=== PATIENT | male | born 1975 | race Caucasian/White ===

== ENCOUNTER 2020-07-31 08:44 | Outpatient (REF) | payer OTHER, SELFPAY ==
[2020-07-31 21:45] LABS: Hemoglobin A1C 5.5 % (<5.7)
[2020-07-31 22:16] LABS: ALT 93 U/L (16-63); AST 48 U/L (15-37); Albumin 4.3 g/dL (3.4-5.0); Alkaline Phosphatase 80 U/L (46-116); Anion Gap 9.4 mmol/L (3-11); BUN 22 mg/dL (7-18); Bilirubin, Total 0.6 mg/dL (0.2-1.0); CO2 25.6 mmol/L (21.0-32.0); CREATININE 1.05 mg/dL (0.70-1.30); Calculated LDL 70 mg/dL (<100); Chloride 107 mmol/L (98-107); Cholesterol 164 mg/dL (<200); Glucose 106 mg/dL (74-106); HDL Cholesterol 31 mg/dL (40-60); Magnesium 2.2 mg/dL (1.8-2.4); Potassium 4.2 mmol/L (3.5-5.1); Sodium 142 mmol/L (136-145); Total Protein 7.2 g/dL (6.4-8.2); Triglyceride 319 mg/dL (<150); Vitamin B12 464 pg/mL (193-986)
== END 2020-07-31 09:04 ==
LOC: NCHCN 08:44
PROVIDERS: Visit Provider Nurse Practitioner Family
DX: I10 Essential (primary) hypertension (principal); E78.5 Hyperlipidemia, unspecified; K21.9 Gastro-esophageal reflux disease without esophagitis
CPT/HCPCS: 80053; 80061; 82607; 83036; 83735

== ENCOUNTER 2020-09-20 08:18 | Outpatient (REF) | payer OTHER, SELFPAY ==
[2020-09-20 22:07] LABS: ALT 82 U/L (16-63); AST 46 U/L (15-37); Albumin 4.3 g/dL (3.4-5.0); Alkaline Phosphatase 79 U/L (46-116); Anion Gap 8.2 mmol/L (3-11); BUN 20 mg/dL (7-18); Bilirubin, Total 0.6 mg/dL (0.2-1.0); CO2 27.8 mmol/L (21.0-32.0); CREATININE 1.12 mg/dL (0.70-1.30); Calcium 8.9 mg/dL (8.5-10.1); Chloride 104 mmol/L (98-107); Glucose 105 mg/dL (74-106); Potassium 3.9 mmol/L (3.5-5.1); Sodium 140 mmol/L (136-145); Total Protein 7.3 g/dL (6.4-8.2)
== END 2020-09-20 08:38 ==
LOC: NCHCN 08:18
PROVIDERS: Visit Provider Nurse Practitioner Family
DX: R74.8 Abnormal levels of other serum enzymes (principal)
CPT/HCPCS: 80053

== ENCOUNTER 2021-01-29 19:03 | Outpatient (REF) | payer OTHER, SELFPAY ==
[2021-01-29 16:01] LABS: ALT 108 U/L (16-63); AST 47 U/L (15-37); Albumin 4.1 g/dL (3.4-5.0); Alkaline Phosphatase 88 U/L (46-116); Anion Gap 7.4 mmol/L (3-11); BUN 19 mg/dL (7-18); Bilirubin, Total 0.7 mg/dL (0.2-1.0); CO2 25.6 mmol/L (21.0-32.0); CREATININE 1.1 mg/dL (0.70-1.30); Calcium 8.8 mg/dL (8.5-10.1); Chloride 106 mmol/L (98-107); Glucose 99 mg/dL (74-106); Potassium 3.9 mmol/L (3.5-5.1); Sodium 139 mmol/L (136-145); Total Protein 7.2 g/dL (6.4-8.2)
== END 2021-01-29 19:04 | disposition home or self-care (01) ==
LOC: NCHCN 19:03
PROVIDERS: Visit Provider Nurse Practitioner Family
DX: R74.8 Abnormal levels of other serum enzymes (principal)
CPT/HCPCS: 80053

== ENCOUNTER 2021-08-10 09:52 | Outpatient (REF) | payer OTHER, SELFPAY ==
[2021-08-10 15:00] LABS: ALT 61 U/L (16-63); AST 35 U/L (15-37); Albumin 4.4 g/dL (3.4-5.0); Alkaline Phosphatase 91 U/L (46-116); Anion Gap 8.7 mmol/L (3-11); BUN 15 mg/dL (7-18); Bilirubin, Total 0.5 mg/dL (0.2-1.0); CO2 26.3 mmol/L (21.0-32.0); CREATININE 1.1 mg/dL (0.70-1.30); Calculated LDL 68 mg/dL (<100); Chloride 104 mmol/L (98-107); Cholesterol 130 mg/dL (<200); Glucose 113 mg/dL (74-106); HDL Cholesterol 35 mg/dL (40-60); Potassium 4.6 mmol/L (3.5-5.1); Sodium 139 mmol/L (136-145); Total Protein 7.2 g/dL (6.4-8.2); Triglyceride 136 mg/dL (<150)
== END 2021-08-10 09:53 | disposition home or self-care (01) ==
LOC: NCHCN 09:52
PROVIDERS: Referring Provider Family Medicine; Visit Provider Family Medicine
DX: I25.10 Atherosclerotic heart disease of native coronary artery without angina pectoris (principal); E78.5 Hyperlipidemia, unspecified; Z00.00 Encounter for general adult medical examination without abnormal findings
CPT/HCPCS: 80053; 80061

== ENCOUNTER 2022-08-09 16:40 | Outpatient (REF) | payer OTHER, SELFPAY ==
[2022-08-09 15:31] LABS: ALT 79 U/L (16-63); AST 33 U/L (15-37); Albumin 4.1 g/dL (3.4-5.0); Alkaline Phosphatase 76 U/L (46-116); Anion Gap 9.4 mmol/L (3-11); BUN 23 mg/dL (7-18); Bilirubin, Total 0.4 mg/dL (0.2-1.0); CO2 24.6 mmol/L (21.0-32.0); CREATININE 1.1 mg/dL (0.70-1.30); Calcium 8.8 mg/dL (8.5-10.1); Calculated LDL 67 mg/dL (<100); Chloride 105 mmol/L (98-107); Cholesterol 148 mg/dL (<200); Estimated GFR 83.32 (mL/min/1.73m2); Glucose 114 mg/dL (74-106); HDL Cholesterol 38 mg/dL (40-60); Potassium 4.4 mmol/L (3.5-5.1); Sodium 139 mmol/L (136-145); Total Protein 7.7 g/dL (6.4-8.2); Triglyceride 217 mg/dL (<150)
== END 2022-08-09 16:41 | disposition home or self-care (01) ==
LOC: NCHCN 16:40
PROVIDERS: Visit Provider Family Medicine
DX: I10 Essential (primary) hypertension (principal); E78.5 Hyperlipidemia, unspecified
CPT/HCPCS: 80053; 80061

== ENCOUNTER 2023-12-16 14:29 | Outpatient (REF) | payer OTHER, SELFPAY ==
--- OUTSIDE RECORDS SUMMARY | 2023-12-16 14:31 | XMS_ITS | CCD ---
Author Name Unknown Address [address] [place] [address] [phone] Organization Unknown Address [address] [place], [place] [id number] Care Team Providers Care Client Customer Manager Name Role Phone JOHNSON LIEBERMAN Attending Physician [phone] Vital Signs Unknown or Not Available. Allergies Allergy Code Allergy Type Reaction Status PENICILLINS (CLASS) 55324 Drug allergy Act hossein Procedures Unknown or Not Available. History of Immunizations Unknown or Not Available. Problems Unknown or Not Available. Results COMPREHENSIVE METABOLIC PANE L (CMP) - Collect Date/Time: 11/27/2023 15:15 Test Name Code Test Result Test Units Test Ref Rang e GLUCOSE 2345-7 104 mg/dL L=70 H=116 BUN 3094-0 14 mg/dL L=6 H=25 CREATININE 2160-0 1.30 mg/dL L=0.67 H=1.17 SODIUM SERUM 2951-2 137 mmol/L L=136 H=145 POTASSIUM SERUM 2823-3 3.9 mmol/L L=3.4 H=5 .2 CHLORIDE SERUM 2075-0 102 mmol/L L=96 H=110 CARBON DIOXIDE (CO2) 2028-9 27 mmol/L L=22 H=34 ANION GAP 61543-2 8.3 mmol/L CALCIUM SERUM 93953-4 8.6 mg/dL L=8.2 H=10. 2 BILIRUBIN TOTAL 1975-2 0.5 mg/dL L=0.0 H=1 .3 ALK. PHOS. 6768-6 72 U/L L=46 H=116 SGOT (AST) 1920-8 28 U/L L=15 H=37 SGPT (ALT) 1742-6 62 U/L L=12 H=78 TOTAL PROTEIN 2885-2 7.1 gm/dL L=6.0 H=8.0 ALBUMIN 1751-7 3.8 gm/dL L=3.4 H=5.0 AGE 48 years eGFR (non-Afr.Amer.) 43308-8 59 mL/min eGFR (Afr-Fijian) 20804-8 71 mL/min HEMOGLOBIN A1C* - Collect Da te/Time: 11/27/2023 15:15 Test Name Code Test Result Test Units Test Ref Rang e Hgb A1c 4548-4 5.6 % L=3.8 H=5.7 MEAN BLOOD GLUCOSE 47445-6 100 mg/dL LIPID PANEL* - Collect Date/ Time: 11/27/2023 15:15 Test Name Code Test Result Test Units Test Ref Rang e CHOLESTEROL 2093-3 140 mg/dL L=0 H=200 TRIGLYCERIDES 2571-8 325 mg/dL L=63 H=313 HDL 2085-9 38 mg/dL L=28 H=63 non-HDL-C 16526-4 102 mg/dL L=0 H=160 LDL (CALC) 94505-0 37 mg/dL L=0 H=130 % HDL 27.1 % Chol/HDL Ratio 9830-1 3.7 L=0.0 H=4. 9 CHD Relative Risk 0.7 x Avg L=0.0 H =1.0 LDL/HDL Ratio 69683-5 1.0 L=0.0 H=3.5 CHD Relative Risk. 0.3 x Avg L=0.0 H=1.0 FASTING STATUS: NON FASTING N/A Active Medications Unknown or Not Available. Medications Administered During Visit Unknown or Not Available. 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 Discharge Instructions You were admitted to [facility] on 11/27/2023 00:00 with a principal diagnosis of Atherosclerotic heart disease of [place] coronary artery without angina pectoris You had the following tests done:COMPREHENSIVE METABOLIC PANEL (CMP)HEMOGLOBIN A1C*LIPID PANEL* You were discharged from [facility] on 11/27/2023 14:16 Should you have any questions prior to discharge, please contact a member of your healthcare team. If you have left the hospital and have any questions, please contact your primary care physician. Chief Complaint and Reason For Visit Unknown or Not Available. Function Status Unknown or Not Available. Plan of Care Unknown or Not Available. Referral/Transition of Care Unknown or Not Available.
--- OUTSIDE RECORDS SUMMARY | 2023-12-16 14:31 | XMS_ITS | CCD ---
Author Name Unknown Address [address] [place] [address] [phone] Organization Unknown Address [address] [place] [address] [id number] Care Team Providers Care Ship Superintendent Name Role Phone JOHNSON LIEBERMAN Attending Physician [phone] JOHNSON LIEBERMAN Rounding (Secondary) Physician [phone] Vital Signs Unknown or Not Available. Allergies Allergy Code Allergy Type Reaction Status PENICILLINS (CLASS) 22117 Drug allergy Act hossein Procedures Unknown or Not Available. History of Immunizations Unknown or Not Available. Problems Unknown or Not Available. Results Unknown or Not Available. Active Medications Unknown or Not Available. Medications Administered During Visit Unknown or Not Available. 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 Discharge Instructions You were admitted to [facility] on 11/15/2022 00:00 with a principal diagnosis of Atherosclerotic heart disease of [place] coronary artery without angina pectoris You were discharged from [facility] on 11/15/2022 00:00 Should you have any questions prior to [...]
--- OUTSIDE RECORDS SUMMARY | 2023-12-16 14:31 | XMS_ITS | CCD ---
Author Name Unknown Address [address] [place] [address] [phone] Organization Unknown Address [address] [place] [address] [phone] Care Team Providers Care Driver Utility Worker Name Role Phone JOHNSON LIEBERMAN Attending Physician [phone] Vital Signs Unknown or Not Available. Allergies Allergy Code Allergy Type Reaction Status PENICILLINS (CLASS) 51632 Drug allergy Act hossein Procedures Unknown or Not Available. History of Immunizations Unknown or Not Available. Problems Unknown or Not Available. Results LIPID PANEL* - Collect Date/ Time: 11/08/2022 08:26 Test Name Code Test Result Test Units Test Ref Rang e CHOLESTEROL 2093-3 144 mg/dL L=0 H=200 TRIGLYCERIDES 2571-8 162 mg/dL L=56 H=318 HDL 2085-9 37 mg/dL L=27 H=67 non-HDL-C 88476-4 107 mg/dL L=0 H=160 LDL (CALC) 05889-5 75 mg/dL L=0 H=130 % HDL 25.7 % Chol/HDL Ratio 9830-1 3.9 L=0.0 H=4. 9 CHD Relative Risk 0.8 x Avg L=0.0 H =1.0 LDL/HDL Ratio 62968-3 2.0 L=0.0 H=3.5 CHD Relative Risk. 0.6 x Avg L=0.0 H=1.0 FASTING STATUS: NOT KNOWN N/A Active Medications Unknown or Not Available. Medications Administered During Visit Unknown or Not Available. Encounters Encounter Diagnosis Diagnosis Code Start Date Alcoholic fatty liver [id number] 11/08/2022 Social History Smoking Status Code Start Date End Date Former smoker [id number] Patient Decision Aids Unknown or Not Available. Discharge Instructions You were admitted to [facility] on 11/08/2022 16:11 with a principal diagnosis of Alcoholic fatty liver You had the following tests done:LIPID PANEL* You were discharged from [facility] on 11/08/2022 16:11 Should you have any questions prior to [...]
[2023-12-16 14:41] LABS: Anion Gap 9.9 mmol/L (3-11); BUN 16 mg/dL (7-18); CO2 25.1 mmol/L (21.0-32.0); CREATININE 1.1 mg/dL (0.70-1.30); Calcium 9.4 mg/dL (8.5-10.1); Chloride 103 mmol/L (98-107); Estimated GFR 82.29 (mL/min/1.73m2); Glucose 105 mg/dL (74-106); Potassium 4.2 mmol/L (3.5-5.1); Sodium 138 mmol/L (136-145)
== END 2023-12-16 14:30 | disposition home or self-care (01) ==
LOC: NCHCN 14:29
PROVIDERS: PCP Family Medicine; Visit Provider Family Medicine
DX: E78.5 Hyperlipidemia, unspecified (principal)
CPT/HCPCS: 80048